=== PATIENT | female | born 1950 | race Two or more races ===

== ENCOUNTER 2020-07-02 10:43 | Outpatient (CLI) | payer OTHER | END 2020-07-02 11:12 | disposition home or self-care (01) | LOC: SONOGRAMA 10:43 | PROVIDERS: ATTEND Pathology Anatomic Pathology & Clinical Pathology | DX: D34 Benign neoplasm of thyroid gland (principal); E04.8 Other specified nontoxic goiter ==

== ENCOUNTER 2021-07-15 10:41 | Outpatient (CLI) | payer OTHER | END 2021-07-15 10:44 | disposition home or self-care (01) | LOC: SONOGRAMA 10:41 | PROVIDERS: ATTEND Pathology Anatomic Pathology & Clinical Pathology | DX: E04.2 Nontoxic multinodular goiter (principal) ==

== ENCOUNTER 2023-01-27 11:13 | Outpatient (CLI) | payer OTHER | END 2023-01-27 11:23 | disposition home or self-care (01) | LOC: SONOGRAMA 11:13 | PROVIDERS: ATTEND Physical Medicine & Rehabilitation Hospice and Palliative Medicine | DX: M76.62 Achilles tendinitis, left leg (principal) ==

== ENCOUNTER 2023-05-06 08:59 | Outpatient (CLI) | payer OTHER | END 2023-05-06 09:10 | disposition home or self-care (01) | LOC: SONOGRAMA 08:59 | PROVIDERS: ATTEND Otolaryngology | DX: E04.2 Nontoxic multinodular goiter (principal) ==